=== PATIENT | female | born 1955 | race African-American/Black ===

== ENCOUNTER 2019-11-13 00:44 | Day surgery (SDC) | payer OTHER, SELFPAY ==
[2019-11-04 09:28] VITALS: BMI 41.5
--- NOTE | 2019-11-12 22:53 | HP_ITS ---
DATE OF SERVICE: 11/13/2019 Date of planned service is November 13, 2019. PREOPERATIVE DIAGNOSIS: Left carpal tunnel syndrome. HISTORY: The patient is 64. She presented along with her daughter. She has a long history of carpal tunnel syndrome over many years. She had a nerve conduction test at [facility] and was told that she had that disease. Nothing was done about it. She comes now with complaints worse on the left with near constant numbness in the radial forefinger, and she can hardly sleep at night due to this. There has no radiation to the upper arm. She is willing to have the surgery done. She understands the risk of this or nerve injury, tendon injury, infection, possible poor or no recovery due to her premorbid condition. She wants this done under a sedation anesthetic and understands there are risks associated with that. ALLERGIES: SHE HAS NO KNOWN ALLERGIES TO MEDICATION. 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 CURRENT MEDICATIONS: Included: 1. Olmesartan. 2. Indomethacin. 3. Hydrocodone 5/325. 4. Fluoxetine. 5. 81 mg of aspirin. 6. Simvastatin. PAST SURGICAL HISTORY: Prior surgeries include rotator cuff surgery, left and right. SOCIAL HISTORY: She is a nonsmoker. REVIEW OF SYSTEMS: Indicates she had a TIA in 2016. She has a history of blood clots, emphysema, and arthritis. PHYSICAL EXAMINATION: She is listed at 5 feet 10 inches. It looks like she is 320 pounds with a BMI of 46. ASSESSMENT: Left carpal tunnel syndrome. PLAN: Left open carpal tunnel release under MAC anesthetic. She will remain on her aspirin. D I MT: Di
--- NOTE | 2019-11-13 07:23 | WPDHPUPDATE1 ---
History and Physical Update Update Date/Time: 11/13/19 07:23 History and Physical has been reviewed, including an updated exam of the patient. There are NO changes in the patient's condition. Risks, benefits, and alternatives have been discussed and questions answered. Patient agrees to proceed with procedure.
--- NOTE | 2019-11-13 08:44 | WPDANESEPPF ---
Anes - Initial Pre Proc Eval Procedure: Operation Date: 11/13/19 10:30 Proposed Procedures p Left Carpal Tunnel Release - Domingo Enriquez MD Date/Time: 11/13/19 08:44 Surgeon: Domingo Enriquez MD Pre Op Diagnosis: Left Carpal Tunnel Syndrome Patient Data Age: 64 Gender: F Height: 1.78 m Weight: 142.6 kg Allergies Allergy/AdvReac Type Severity Reaction Status Date / Time No Known Allergies Allergy Verified 11/13/19 08:40 Home Medications Medication Instructions Recorded Confirmed Type fluoxetine 40 mg PO DAILY 10/31/19 11/13/19 History simvastatin 40 mg PO HS 10/31/19 11/13/19 History aspirin 81 mg PO DAILY 11/04/19 11/13/19 History hydrocodone-acetaminophen 1 tablet PO HS PRN 11/04/19 11/13/19 History indomethacin 25 mg PO BID 11/04/19 11/13/19 History omeprazole 40 mg PO DAILY 11/04/19 11/13/19 History valsartan-hydrochlorothiazide 1 tablet PO DAILY 11/04/19 11/13/19 History Patient hx anesthesia problems: none Family hx anesthesia problems: none PMFSH Past Medical History Medical History (Updated 11/13/19 @ 08:47 by Quinten Bess MD) Anxiety Arthritis Chronic narcotic use COPD (chronic obstructive pulmonary disease) Gastroesophageal reflux disease Gout HTN (hypertension) Hypercholesterolemia Morbid obesity with BMI of 40.0-44.9, adult Anes - Eval Final PreProcedure Day of Procedure 11/13/19 08:44 Patient weight: morbidly obese Heart: regular rate and rhythm Lungs: clear to auscultation and normal air movement Airway: Mallampati scale class II Neurological: alert and oriented Last oral intake: >/= 8 hours ASA classification: III Emergent: no Anesthetic plan: proceed Anesthesia type and monitoring: general GIVS Informed Consent: The patient's anesthetic plan and its attendant risks and benefits were discussed with the patient/family/POA. Questions were solicited and answers provided to the satisfaction of the patient/family/POA.
[2019-11-13] MEDS: LACTATED RINGERS 1,000 ML 30 ML IV CONT (08:55)
[2019-11-13 09:08] VITALS: BP 120/70; PULSE 59; RESP 18; TEMP 36.4; O2SAT 98
[2019-11-13 09:13] LABS: Blood Urea Nitrogen 15 mg/dL (7-17); Calcium 9.5 mg/dL (8.4-10.2); Carbon Dioxide 31 mmol/L (22-30); Chloride 103 mmol/L (98-107); Estimated CRCL calculation 79 ml/min; Estimated Glomerular Filt Rate > 60; Glucose 135 mg/dL (65-105); Potassium 3.8 mmol/L (3.4-5.0); Sodium 141 mmol/L (137-145)
--- NOTE | 2019-11-13 09:50 | SUR.PREOP ---
0982 PT UPDATED ABOUT SURGERY TIME DELAY. DENIES ANY NEEDS AT THIS TIME.
--- NOTE | 2019-11-13 11:22 | P.OPB_ITS ---
Procedure Note - Brief Procedure Note - Brief Date of procedure: 11/13/19 Pre-op diagnosis: Left Carpal Tunnel Syndrome Post-op diagnosis: same Procedure performed: L OCTR Anesthesia: MAC Surgeon: Domingo Enriquez MD [place] Operator: Maria Guadalupe CASTELLANOS Estimated blood loss (mL): 0 Drains: No Packing: No Pathology: none sent Complications: No immediate complications Condition: stable Disposition: same day
--- NOTE | 2019-11-13 11:48 | SUR.OPER ---
EBL:0CC
--- NOTE | 2019-11-13 11:56 | PM.PROC ---
Procedure Note - Detailed Date of procedure: 11/13/19 Pre-op diagnosis: Left Carpal Tunnel Syndrome Post-op diagnosis: same Procedure performed: Left open carpal tunnel release Description of procedure: The appropriate site was marked while the patient was in the holding area. She was taken to the operating room and placed supine on the operating table. A time-out was held and confirmed. She was given IV sedation as the extremity was prepped and draped in the usual fashion. The marking was reconfirmed and the site locally infiltrated with 1% lidocaine with epinephrine. The tourniquet was inflated to 250 mmHg. The incision was made as marked and carried bluntly through the subcutaneous tissue. The palmar fascia and carpal ligament were incised with a 15. Blade. Under 3 point retraction the ligament was divided distally and proximally to completely release it. No unusual anatomy was noted. The skin wound was closed with interrupted 5 0 nylon sutures. The usual bandage was applied and she is discharged from the operating room in stable condition. She has a prescription for hydrocodone [id number].. Surgeon: Domingo Enriquez MD
[2019-11-13] MEDS: LIDO 1%/EPINEPHRINE 1:100,000 20 ML VIAL 4 ML INFILTRATE (11:57)
[2019-11-13 11:58] VITALS: BP 118/62; PULSE 91; RESP 12; O2SAT 96
[2019-11-13 12:25] VITALS: BP 110/73; PULSE 75; RESP 14; O2SAT 96
[2019-11-13 12:45] VITALS: BP 111/64; PULSE 78; RESP 14
== END 2019-11-13 12:57 | disposition home or self-care (01) ==
PROVIDERS: Anesthesiology; PCP Family Medicine; Visit Provider Plastic Surgery
PROC: (CPT 64721; principal; 2019-11-13 10:30)
DX: G56.02 Carpal tunnel syndrome, left upper limb (principal); I10 Essential (primary) hypertension; E78.00 Pure hypercholesterolemia, unspecified; J44.9 Chronic obstructive pulmonary disease, unspecified; M10.9 Gout, unspecified; K21.9 Gastro-esophageal reflux disease without esophagitis; M19.90 Unspecified osteoarthritis, unspecified site; F41.9 Anxiety disorder, unspecified; Z79.891 Long term (current) use of opiate analgesic; E66.01 Morbid (severe) obesity due to excess calories; Z68.42 Body mass index [BMI] 45.0-49.9, adult; Z79.82 Long term (current) use of aspirin
CPT/HCPCS: 64721; 36415; 80048; J2250; J2704; J3010; J7120